=== PATIENT | female | born 1985 | race African-American/Black ===

== ENCOUNTER 2022-07-09 19:09 | Emergency (ER) | payer OTHER ==
[~2022-07-09] VITALS: Ht 162.6 cm; Wt 113.0 kg
[2022-07-09 19:34] VITALS: BP 126/82
[2022-07-09 20:01] LABS: HEMATOCRIT. 32.3 % (36.0-48.0); HEMOGLOBIN. 10.2 g/dL (12.0-16.0); MEAN CORPUSCULAR HEMOGLOBIN 23.9 pg (28.0-32.0); MEAN CORPUSCULAR VOLUME 75.5 fL (81.0-99.0); MEAN PLATELET VOLUME 7.4 fl (7.4-10.4); PLATELET 439 x1000/uL (130-400); RED BLOOD CELL COUNT 4.28 mill/uL (4.2-5.4); RED CELL DISTRIBUTION WIDTH 25.9 % (11.6-14.6)
[2022-07-09 20:08] LABS: CHLORIDE 110 mEq/L (98-107)
[2022-07-09 20:10] LABS: HCG SCREEN NEGATIVE
[2022-07-09 20:14] LABS: PLATELET ESTIMATE INCREASED
[2022-07-09 20:20] LABS: ETHANOL BLOOD 494 mg/dL
[2022-07-09] MEDS ORDERED: CHLORDIAZEPOXIDE 25MG CAPSULE PO NR (21:30)
[2022-07-09] MEDS ORDERED: CHLORDIAZEPOXIDE 25MG CAPSULE PO ONE (21:30)
[2022-07-09] MEDS ORDERED: CHLORDIAZEPOXIDE 25MG CAPSULE ONE (23:29)
== END 2022-07-10 00:48 | disposition home or self-care (01) ==
LOC: ER 19:09
DX: T51.0X1A Toxic effect of ethanol, accidental (unintentional), initial encounter (principal); X58.XXXA Exposure to other specified factors, initial encounter; I10 Essential (primary) hypertension; Z98.890 Other specified postprocedural states
CPT/HCPCS: 36415; 80053; 80320; 84703; 85025; 99283; G0480